=== PATIENT | female | born 1960 | race Caucasian/White ===

== ENCOUNTER → 2017-04-11 | Outpatient (CLI) | payer OTHER ==
[2017-04-11 12:23] LABS: BASO % 0.8 %; BASO ABS # 0.06 K/uL (0-0.2); COMPLETE YES; EOS % 2.6 %; HEMATOCRIT 44.9 % (37-47); IG% 0.3 %; LYMPH % 24.7 %; LYMPH ABS # 1.82 K/uL (1.2-3.4); MEAN CORPUSCULAR HEMOGLOBIN 30.3 pg (25-34); MEAN CORPUSCULAR HGB CONC 33.6 g/dl (32-36); MEAN PLATELET VOLUME 10.8 fL (7.4-10.4); MONO % 7.5 %; NEUT % 64.1 %; PLATELET COUNT 195 K/uL (130-400); RED BLOOD COUNT 4.99 M/uL (4.2-5.4); WHITE BLOOD COUNT 7.36 K/uL (4.8-10.8)
[2017-04-11 12:57] LABS: ALT/SGPT 46 U/L (12-78); BLOOD UREA NITROGEN 28 mg/dl (7-18); BUN/CREATININE RATIO 23.7 (10-20); CARBON DIOXIDE 24 mmol/L (21-32); CHLORIDE 106 mmol/L (98-107); CHOLESTEROL 173 mg/dl (0-200); GLUCOSE 107 mg/dl (70-99); SODIUM 139 mmol/L (136-145)
[2017-04-11 13:10] LABS: CALCIUM 9.5 mg/dl (8.5-10.1)
[2017-04-11 13:22] LABS: ALB/GLOB RATIO 0.9 (0.9-2); ALKALINE PHOSPHATASE 93 U/L (45-117); AST/SGOT 36 U/L (15-37); CHOLESTEROL/HDL RATIO 3.2; HDL CHOLESTEROL 54 mg/dl; LDL CHOLESTEROL CALCULATED 105 mg/dl; THYROID STIMULATING HORMONE 0.462 uIu/ml (0.300-4.500); TRIGLYCERIDES 68 mg/dl (0-150); VERY LOW DENSITY LIPOPROT CALC 14 mg/dl
== END | disposition home or self-care (01) ==
LOC: C.LABPBG 09:48
PROVIDERS: ATTEND Neuromusculoskeletal Medicine & OMM
DX: Z00.00 Encounter for general adult medical examination without abnormal findings (principal); K75.4 Autoimmune hepatitis

== ENCOUNTER → 2017-06-12 | Outpatient (CLI) | payer OTHER ==
[2017-06-12 17:50] LABS: ALT/SGPT 29 U/L (12-78); BLOOD UREA NITROGEN 24 mg/dl (7-18); BUN/CREATININE RATIO 23.8 (10-20); CALCIUM 9.8 mg/dl (8.5-10.1); CARBON DIOXIDE 28 mmol/L (21-32); CHLORIDE 105 mmol/L (98-107); GLUCOSE 117 mg/dl (70-99); POTASSIUM 5.3 mmol/L (3.5-5.1); SODIUM 138 mmol/L (136-145)
[2017-06-12 17:54] LABS: BASO % 0.3 %; BASO ABS # 0.02 K/uL (0-0.2); COMPLETE YES; EOS % 0.7 %; HEMATOCRIT 43.9 % (37-47); IG% 0.5 %; LYMPH % 26.1 %; MEAN CELL VOLUME 90.3 fL (80-100); MEAN CORPUSCULAR HEMOGLOBIN 30.9 pg (25-34); MEAN CORPUSCULAR HGB CONC 34.2 g/dl (32-36); MEAN PLATELET VOLUME 10.5 fL (7.4-10.4); MONO % 5.9 %; NEUT % 66.5 %; PLATELET COUNT 195 K/uL (130-400); RED BLOOD COUNT 4.86 M/uL (4.2-5.4); WHITE BLOOD COUNT 6.12 K/uL (4.8-10.8)
[2017-06-12 18:00] LABS: ALKALINE PHOSPHATASE 81 U/L (45-117); AST/SGOT 27 U/L (15-37); THYROID STIMULATING HORMONE 0.381 uIu/ml (0.300-4.500)
== END | disposition home or self-care (01) ==
LOC: C.LABPBG 14:35
PROVIDERS: ATTEND Family Medicine
DX: R61 Generalized hyperhidrosis (principal)

== ENCOUNTER → 2017-06-17 | Outpatient (CLI) | payer OTHER ==
[2017-06-17 17:25] LABS: BLOOD UREA NITROGEN 25 mg/dl (7-18); BUN/CREATININE RATIO 18.8 (10-20); CALCIUM 10.1 mg/dl (8.5-10.1); CARBON DIOXIDE 26 mmol/L (21-32); CHLORIDE 104 mmol/L (98-107); GLUCOSE 104 mg/dl (70-99); POTASSIUM 4.8 mmol/L (3.5-5.1); SODIUM 137 mmol/L (136-145)
== END | disposition home or self-care (01) ==
LOC: C.LABPBG 15:09
PROVIDERS: ATTEND Family Medicine
DX: E87.5 Hyperkalemia (principal)

== ENCOUNTER → 2017-08-18 | Outpatient (CLI) | payer OTHER ==
[2017-08-18 12:49] LABS: ESTIMATED AVERAGE GLUCOSE 117 mg/dl; HA1C FLAG Normal (Normal)
[2017-08-18 12:54] LABS: ALT/SGPT 23 U/L (12-78); AST/SGOT 17 U/L (15-37); BLOOD UREA NITROGEN 24 mg/dl (7-18); BUN/CREATININE RATIO 25.1 (10-20); CALCIUM 9.1 mg/dl (8.5-10.1); CARBON DIOXIDE 27 mmol/L (21-32); CHLORIDE 107 mmol/L (98-107); CREATININE 0.96 mg/dl (0.60-1.20); GLUCOSE 128 mg/dl (70-99); POTASSIUM 3.4 mmol/L (3.5-5.1); SODIUM 141 mmol/L (136-145)
[2017-08-18 12:56] LABS: ALB/GLOB RATIO 0.9 (0.9-2); ALKALINE PHOSPHATASE 98 U/L (45-117)
--- NOTE | 2017-08-22 13:18 | CODING QUERY MEDICAL NECESSITY ---
SUPPORTING DIAGNOSIS NEEDED A supporting diagnosis is required for the test/procedure performed on this patient in order for us to be reimbursed by the patient's insurance. Please provide a supporting diagnosis for the following test/procedure listed below next to the test name along with your signature. *If there is no additional diagnosis for this patient that would support the following test/procedure please document that below next to the test/procedure. Test(s)/Procedure(s) that require a supporting diagnosis: * HEMOGLOBIN A1C DIAGNOSIS: Provider Signature: Date: Thank you Cherry Norman [employer] Once completed, please kindly fax back to [phone] For questions please call [phone]
== END | disposition home or self-care (01) ==
LOC: C.LABPBG 08:39
PROVIDERS: ATTEND Family Medicine
DX: K75.4 Autoimmune hepatitis (principal)

== ENCOUNTER → 2017-11-19 | Outpatient (CLI) | payer OTHER | END | disposition home or self-care (01) | LOC: C.LABSPEC 09:39 | PROVIDERS: ATTEND Physician Assistant | DX: J02.9 Acute pharyngitis, unspecified (principal) ==

== ENCOUNTER → 2017-12-30 | Day surgery (SDC) | payer OTHER ==
[2017-12-19 07:35] VITALS: Ht 160 cm; Wt 74.5 kg
[~2017-12-30] VITALS: Ht 160 cm; Wt 74.5 kg
[~2017-12-30] MED LIST: ALBUAER INH; LIDOCAINE HCL 2% 2 ML VIAL (20MG/ML) ONE; PANT1TAB3 PO; PRED-301 PO; PROPOFOL IV EMULSION 10 MG/ML 20 ML VIAL IV ONE; SODIUM CHLORIDE 0.9% 500ML 500 ML IV ONE; VENL150C56 PO
--- NOTE | 2017-12-30 10:03 | Endo History and Physical ---
History & Physical Date of Service: Dec 30, 2017. Chief Complaint: Epaigastric Pain, Nausea Referring Physician: Crys Stern History of Present Illness 57 yo CF who presents for EGD secondary to epigastric pain and nausea. Past Surgical History Hx Cardiac Surgery: No Hx Internal Defibrillator: No Hx Pacemaker: No Hx Abdominal Surgery: Yes ([place], HYSTERECTOMY) Hx of Implantable Prosthesis: No Hx Post-Op Nausea and Vomiting: Yes Hx Cancer Surgery: No Hx Thoracic Surgery: No Hx Orthopedic: No Hx Urinary Tract Surgery: No Family History Esophogeal CA Social History Smoking Status: Current Every Day Smoker Hx Substance Use: No Hx Alcohol Use: No Allergies Coded Allergies: NO KNOWN DRUG ALLERGIES (Verified Allergy, Unknown, ., 12/30/17) Current Medications Reported Home Medications Medications Dose Route/Sig Max Daily Dose Days Date Category Proventil Hfa (Albuterol Sulfate) 108 Mcg/Act Aer 2 Puff INH Q6H PRN 12/19/17 Reported Effexor Extended Rel (Venlafaxine Hcl) 150 Mg Cap 150 Mg PO QAM 12/19/17 Reported Protonix (Pantoprazole) 40 Mg Tab 40 Mg PO QAM 12/19/17 Reported Prednisone 5 Mg Tab 5 Mg PO QAM 12/19/17 Reported Vital Signs Weight (Kilograms): 74.55 Height (Feet): 5 Height (Inches): 3 Physical Exam General Appearance: WD/WN, no apparent distress Respiratory/Chest: Auscultation: breath sounds normal Cardiovascular: Heart Auscultation: RRR Abdomen: Bowel Sounds: normal Inspection & Palpation: soft, non-distended, no tenderness, guarding & rebound Assessment and Plan Assessment: 57 yo CF who presents for EGD secondary to epigastric pain and nausea. Plan: Proceed with EGD.
--- NOTE | 2017-12-30 11:21 | Discharge Instructions ---
Endoscopy Patient Instructions Date / Procedure(s) Performed Dec 30, 2017. EGD Allergy Information Coded Allergies: NO KNOWN DRUG ALLERGIES (Verified Allergy, Unknown, ., 12/30/17) Discharge Date / Findings Dec 30, 2017. Hiatal hernia Gastric antrum biopsies Medication Instructions OK to resume all medications today as prescribed Reported Home Medications Medications Dose Route/Sig Max Daily Dose Days Date Category Proventil Hfa (Albuterol Sulfate) 108 Mcg/Act Aer 2 Puff INH Q6H PRN 12/19/17 Reported Effexor Extended Rel (Venlafaxine Hcl) 150 Mg Cap 150 Mg PO QAM 12/19/17 Reported Protonix (Pantoprazole) 40 Mg Tab 40 Mg PO QAM 12/19/17 Reported Prednisone 5 Mg Tab 5 Mg PO QAM 12/19/17 Reported Provider Instructions Activity Restrictions - No exercising or heavy lifting for 24 hours. - Do not drink alcohol the day of the procedure. - Do not drive a car or operate machinery until the day after the procedure. - Do not make any important decisions or sign important papers in 24 hours after the procedure. Following Day: - Return to full activity which may include returning to work/school. Diet Start your diet with liquids and light foods (jello, soup, juice, toast). Then eat your usual diet if not nauseated. Treatment For Common After Affects For mild abdominal pain, bloating, or excessive gas: - Rest - Eat lightly - Lie on right side Follow-Up Information Follow-up with Crys Stern as scheduled Anesthesia Information What You Should Know You have had a procedure that required some medicine to reduce anxiety and discomfort. This treatment is called moderate sedation. After receiving the treatment, you may be sleepy, but you will be able to breathe on your own. The effects of the treatment may last for several hours. Follow these instructions along with Activity/Diet recommendations noted above: * Do NOT do anything where dizziness or clumsiness would be dangerous. * Rest quietly at home today, then you can be up and about tomorrow. * Have a responsible person stay with you the rest of today. * You may have had an I.V. today. If so, you may take the dressing off later today. Recommendations Call your doctor if: * Trouble breathing * Continuous vomiting for more than 24 hours * Temperature above 101 degrees * Severe abdominal pain or bloating * Pain not relieved by pain medicine ordered * There is increased drainage or redness from any incision * A large amount of rectal bleeding greater than 2-3 tablespoons. (If you had a polyp/s removed or have hemorrhoids, a small amount of blood - from the rectum is to be expected.) * You have any unanswered questions or concerns. IN THE EVENT OF A SERIOUS EMERGENCY, GO TO THE NEAREST EMERGENCY ROOM Your discharge instructions were prepared by provider Adeel Renteria. Patient Instructions Signature Page Katelynn Cabezas Patient (or Guardian) Signature/Date: I have read and understand the instructions given to me by my caregivers. Caregiver/RN/Doctor Signature/Date: The above-named patient and/or guardian has received patient instructions on this date. + Original Patient Signature Page (only) stays with chart. Please make copy for patient.
--- NOTE | 2017-12-30 11:32 | GI REPORT ---
Procedure Date: 12/30/2017 10:46 AM Procedure: Upper GI endoscopy Indications: Epigastric abdominal pain Medicines: Monitored Anesthesia Care Complications: No immediate complications. Estimated Blood Loss: Estimated blood loss: none. Procedure: Pre-Anesthesia Assessment: - Prior to the procedure, a History and Physical was performed, and patient medications and allergies were reviewed. The patient's tolerance of previous anesthesia was also reviewed. The risks and benefits of the procedure and the sedation options and risks were discussed with the patient. All questions were answered, and informed consent was obtained. Prior Anticoagulants: The patient has taken no previous anticoagulant or antiplatelet agents. ASA Grade Assessment: III - A patient with severe systemic disease. After reviewing the risks and benefits, the patient was deemed in satisfactory condition to undergo the procedure. After obtaining informed consent, the endoscope was passed under direct vision. Throughout the procedure, the patient's blood pressure, pulse, and oxygen saturations were monitored continuously. The scope was introduced through the mouth, and advanced to the second part of duodenum. The upper GI endoscopy was accomplished without difficulty. The patient tolerated the procedure well. Findings: The examined esophagus was normal. A small hiatal hernia was present. Biopsies were taken with a cold forceps in the gastric antrum for Helicobacter pylori testing. The examined duodenum was normal. Impression: - Normal esophagus. - Small hiatal hernia. - Normal examined duodenum. - Biopsies were taken with a cold forceps for Helicobacter pylori testing. Recommendation: - Resume previous diet. - Continue present medications. - Await pathology results. - Return to primary care physician as previously scheduled. Adeel Renteria DO 12/30/2017 11:31:56 AM This report has been signed electronically. Note Initiated On: 12/30/2017 10:46 AM I attest to the content of the Intraoperative Record and orders documented therein, exceptions below
[2017-12-30 11:37] VITALS: BP 129/80; PULSE 75; O2SAT 96
--- NOTE | 2017-12-30 12:14 | Anesthesiology Progress Note ---
Anesthesia Post Op Note Date & Time Dec 30, 2017 at 12:14 Vital Signs Pain Intensity: 0 Vital Signs Past 12 Hours Date Time Temp Pulse Resp B/P (MAP) Pulse Ox O2 Delivery O2 Flow Rate FiO2 12/30/17 11:37 75 16 129/80 (96) 96 Room Air 12/30/17 11:18 92 16 111/77 (88) 94 Room Air 12/30/17 10:12 37.1 79 18 104/61 (75) 95 Room Air Notes Mental Status: alert / awake / arousable, participated in evaluation Pt Amnestic to Procedure: Yes Nausea / Vomiting: adequately controlled Pain: adequately controlled Airway Patency, RR, SpO2: stable & adequate BP & HR: stable & adequate Hydration State: stable & adequate Anesthetic Complications: no major complications apparent
== END | disposition home or self-care (01) ==
LOC: C.GI 09:23
PROVIDERS: ATTEND Internal Medicine
DX: R10.13 Epigastric pain (principal); R11.0 Nausea; K44.9 Diaphragmatic hernia without obstruction or gangrene; K75.4 Autoimmune hepatitis; K74.60 Unspecified cirrhosis of liver; F17.200 Nicotine dependence, unspecified, uncomplicated; K27.9 Peptic ulcer, site unspecified, unspecified as acute or chronic, without hemorrhage or perforation; Z79.52 Long term (current) use of systemic steroids; Z90.49 Acquired absence of other specified parts of digestive tract; Z90.710 Acquired absence of both cervix and uterus